=== PATIENT | male | born 1960 | race Two or more races ===

== ENCOUNTER 2017-05-29 08:33 | Day surgery (SDC) | payer OTHER ==
[2017-05-27 10:23] VITALS: BMI 26.5
[2017-05-29 09:02] LABS: MCH 27.9 pg (25.7-33.7); MCHC 34.1 g/dl (32.0-35.9); MEAN CELL VOLUME 81.8 fl (80-96); MEAN PLT VOLUME 7.4 fl (7.5-11.1); PLATELET COUNT 188 K/MM3 (134-434); RDW 13.5 % (11.9-15.9)
[2017-05-29 09:14] LABS: INR 1.03 (0.82-1.09); PROTHROMBIN TIME (PATIENT) 11.3 SEC (9.98-11.88)
[2017-05-29 09:33] LABS: ALBUMIN 3.9 g/dl (3.4-5.0); ALK PHOS 64 U/L (45-117); ANION GAP 8 (8-16); BILIRUBIN,TOTAL 0.9 mg/dL (0.2-1.0); CALCIUM 8.9 mg/dL (8.5-10.1); CO2 29 mmol/L (21-32); CREATININE 0.8 mg/dL (0.7-1.3); GLUCOSE,RANDOM 96 mg/dL (74-106); SGOT/AST 22 U/L (15-37); SGPT/ALT 32 U/L (12-78)
--- NOTE | 2017-05-29 10:26 | OP ---
Operative Note - Note: Operative Date: 05/29/17 Pre-Operative Diagnosis: Bilateral lower extremity claudication Operation: Aortogram, Bilateral lower extremity angiogram Findings: one vessel runoff bl lower ext Post-Operative Diagnosis: Same as Pre-op Surgeon: Dino Ferreira Anesthesia: Fractional Estimated Blood Loss (mls): 30 Operative Report Dictated: Yes
--- NOTE | 2017-05-29 10:27 | HP ---
Admitting History and Physical - Admission Chief Complaint: bilateral lower ext claudication - Past Medical History Cardiovascular: Yes: HTN - Smoking History Smoking history: Never smoked Have you smoked in the past 12 months: No - Alcohol/Substance Use Hx Alcohol Use: No Home Medications - Allergies Allergies/Adverse Reactions: Allergies Allergy/AdvReac Type Severity Reaction Status Date / Time No Known Allergies Allergy Verified 05/29/17 09:31 - Home Medications Home Medications: Ambulatory Orders Metoprolol Succinate [Toprol Xl -] 25 mg PO DAILY 02/24/17 Cephalexin [Keflex] 500 mg PO QID #28 capsule MDD 4 05/14/17 Atorvastatin Ca [Lipitor] 40 mg PO DAILY 05/27/17 Linaclotide [Linzess] 290 mcg PO DAILY 05/27/17 Physical Examination Vital Signs: Vital Signs Temperature 98.4 F 05/29/17 09:26 Pulse Rate 72 05/29/17 09:26 Respiratory Rate 18 05/29/17 09:26 Blood Pressure 113/76 05/29/17 09:26 O2 Sat by Pulse Oximetry (%) 100 05/29/17 09:29 Constitutional: Yes: Well Nourished Eyes: Yes: WNL HENT: Yes: WNL Neck: Yes: WNL Cardiovascular: Yes: WNL Respiratory: Yes: WNL Gastrointestinal: Yes: WNL Edema: No Integumentary: Yes: WNL Neurological: Yes: WNL Labs: CBC, BMP 05/29/17 08:50 05/29/17 08:50 Assessment/Plan Bilateral lower ext claudication 1. For angiogram today
[2017-05-29] MEDS ORDERED: RIVAROXABAN 15 MG TABLET PO SCH (10:30)
[2017-05-29] MEDS ORDERED: MIDAZOLAM HCL 2 MG/2 ML SINGLE DOSE VIAL ONE ×2 (11:03→11:33)
[2017-05-29] MEDS ORDERED: PROPOFOL 20 ML ONE (11:03)
[2017-05-29] MEDS ORDERED: SUCCINYLCHOLINE CHLORIDE 200 MG/10 ML VIAL ONE (11:03)
[2017-05-29] MEDS ORDERED: ceFAZolin SODIUM 1 GM VIAL ONE (11:36)
[2017-05-29] MEDS: BACITRACIN 15 GM TUBE TOPICAL OINTMENT ONE ×2 (13:22→13:40)
--- NOTE | 2017-05-29 13:42 | OP ---
Operative Note - Note: Operative Date: 05/29/17 Operation: Left lower extremity stab phlebectomy 7 incisions Post-Operative Diagnosis: Same as Pre-op Surgeon: Dino Ferreira Anesthesia: Spinal Estimated Blood Loss (mls): 2,000 Blood Volume Replaced (mls): 1,400 Fluid Volume Replaced (mls): 3,500 Operative Report Dictated: Yes
--- NOTE | 2017-05-29 13:47 | HP ---
Admitting History and Physical - Admission Chief Complaint: left lower extremity varicose veins. - Past Medical History Cardiovascular: Yes: HTN - Smoking History Smoking history: Never smoked Have you smoked in the past 12 months: No - Alcohol/Substance Use Hx Alcohol Use: No Home Medications - Allergies Allergies/Adverse Reactions: Allergies Allergy/AdvReac Type Severity Reaction Status Date / Time No Known Allergies Allergy Verified 05/29/17 09:31 - Home Medications Home Medications: Ambulatory Orders Metoprolol Succinate [Toprol Xl -] 25 mg PO DAILY 02/24/17 Cephalexin [Keflex] 500 mg PO QID #28 capsule MDD 4 05/14/17 Atorvastatin Ca [Lipitor] 40 mg PO DAILY 05/27/17 Linaclotide [Linzess] 290 mcg PO DAILY 05/27/17 Physical Examination Vital Signs: Vital Signs Temperature 98.4 F 05/29/17 09:26 Pulse Rate 72 05/29/17 09:26 Respiratory Rate 18 05/29/17 09:26 Blood Pressure 113/76 05/29/17 09:26 O2 Sat by Pulse Oximetry (%) 100 05/29/17 09:29 Constitutional: Yes: Well Nourished Eyes: Yes: WNL HENT: Yes: WNL Neck: Yes: WNL Cardiovascular: Yes: WNL Respiratory: Yes: WNL Gastrointestinal: Yes: WNL ...Rectal Exam: Yes: WNL Edema: Yes Integumentary: Yes: WNL Neurological: Yes: WNL ...Motor Strength: WNL Labs: CBC, BMP 05/29/17 08:50 05/29/17 08:50 Assessment/Plan Left lower ext varicose veins 1. for phlebectomy today
[2017-05-29] MEDS: ACETAMINOPHEN 1000 MG/100 ML VIAL (NON FORMULARY) IVPB ONE (14:00)
[2017-05-29] MEDS ORDERED: ACETAMINOPHEN INJECTION 100 ML IVPB ONE (14:01)
[2017-05-29] MEDS ORDERED: ONDANSETRON 4 MG/2 ML VIAL IVPUSH PRN (14:12)
[2017-05-29] MEDS ORDERED: LACTATED RINGERS SOLUTION 1,000 ML IV SCH (14:15)
[2017-05-29 14:48] LABS: INR 1.22 (0.82-1.09); PROTHROMBIN TIME (PATIENT) 13.5 SEC (9.98-11.88)
[2017-05-29 14:56] LABS: ANION GAP 7 (8-16); CALCIUM 7.5 mg/dL (8.5-10.1); CO2 29 mmol/L (21-32); CREATININE 0.7 mg/dL (0.7-1.3); GLUCOSE,RANDOM 111 mg/dL (74-106)
[2017-05-29 14:58] LABS: CPK 72 IU/L (39-308); TROPONIN I 0.02 ng/ml (0.00-0.05)
[2017-05-29] MEDS: oxyCODONE HCL 5 MG TABLET PO PRN (18:53)
[2017-05-29 20:28] LABS: BASOPHIL 0.2 % (0-2.0); EOSINOPHIL 0.7 % (0-4.5); MCHC 34.8 g/dl (32.0-35.9); MEAN CELL VOLUME 83.4 fl (80-96); NEUTROPHILS 84.7 % (42.8-82.8); PLATELET COUNT 159 K/MM3 (134-434); RDW 13.9 % (11.9-15.9); WHITE BLOOD COUNT 15.5 K/mm3 (4.0-10.0)
[2017-05-30] MEDS: oxyCODONE HCL 5 MG TABLET PO PRN (04:04)
--- NOTE | 2017-05-30 06:22 | OP ---
DATE OF OPERATION: 05/29/2017 PREOPERATIVE DIAGNOSIS: Left lower extremity varicose veins. POSTOPERATIVE DIAGNOSIS: Left lower extremity varicose veins. PROCEDURE: Left lower extremity stab phlebectomy with 7 incisions. SURGEON: Dino Baires DO ANESTHESIA: Spinal. BLOOD LOSS: 2000 mL. The patient received 4 units of packed red blood cells intraoperatively. The patient is a 57-year-old male that came into ambulatory surgery for left lower extremity phlebectomy. Patient has extensive varicosities in the left lower extremity that have been there for many, many years. He has had a phlebectomy done in the past, about 20 years ago, which required blood transfusions. Due to the extensive his varicosities with the rest of his circulation, patient currently has a giant 7 x 7 varicosity above the ankle that is thrombosed with phlebitis which needs to be removed today. Patient was consented for the procedure, citing all risks, benefits, and alternatives. Then brought to the operating room. Anesthesia then performed spinal anesthesia on the patient on the operating room table. Thereafter, the area of the left lower extremity was prepped and draped in a sterile surgical manner. We then went ahead and started at the ankle and prior to patient getting his spinal anesthesia patient stood up and using a skin marker we marked all the varicosities in the left lower extremity that needed to be removed. We then went ahead and started at the ankle at the area of vein that was the largest that was 7 x 7 thrombosed varicose vein. Under ultrasound guidance, we visualized the proximal and distal portions of the vein where it was varicosed and we then went ahead and made a 3-cm incision on either side of the thrombosed varicosity. We then went ahead and using Bovie electrocautery controlled hemostasis and we went ahead and dissected out the vein and we were able to tie off the vein and tie it off with 2-0 silk. The varicosity was then removed. During this whole time, there was some bleeding and pressure was held. We then ahead and went up the leg and using a 15 blade we made a small 2-cm incision and the varicosities were removed using right-angles and clamps. The varicosities were sent to Pathology. We continued up and in this manner 7 stab incisions were made using our 15 blade and our vein blade and we were able to remove the veins in this manner using our clamps and stripping the vein out. During this time, there was extensive bleeding and patient required 4 units of packed red blood cells. Total blood loss was 2000 mL. We then went ahead and for certain incisions there were 3 incisions that were large. We went ahead and used the 3 incisions that were about 3 or 4 cm and we went ahead and used a 3-0 Vicryl stitch and the subcutaneous tissue was approximated together. There were 4 stab incisions that would just require Steri-Strips. We then went ahead and wet and dried the area and porter were placed along the incisions that were closed with 3-0 Vicryl. We then placed bacitracin on those areas. Steri-Strips were placed to the other incisions; 4 x 4, Kerlix, and Lance bandage were then wrapped on the patient. Patient was transfused 4 units of blood during the case. Patient will now stay satellite for observation to make sure that the patient does well. Will get another CBC in 6 hours and patient will be discharged tomorrow after checking the dressing. Patient tolerated with no complications. DINO BAIRES DO [id number]
[2017-05-30 06:50] VITALS: PULSE 82
[2017-05-30] MEDS: ACETAMINOPHEN 1000 MG/100 ML VIAL (NON FORMULARY) IVPB ONE (07:46)
[2017-05-30 08:01] LABS: MCH 28.4 pg (25.7-33.7); MCHC 34.7 g/dl (32.0-35.9); MEAN CELL VOLUME 82.1 fl (80-96); MEAN PLT VOLUME 7.6 fl (7.5-11.1); PLATELET COUNT 140 K/MM3 (134-434); RDW 13.9 % (11.9-15.9); WHITE BLOOD COUNT 12.2 K/mm3 (4.0-10.0)
[2017-05-30 08:40] VITALS: BP 116/64; TEMP 98.1
--- NOTE | 2017-05-30 09:14 | PN ---
Progress Note (short form) - Note Progress Note: Vascular Surgery Pt seen and examined. Doing well Dressing changed. Will ambulate and go home. Dino Ferreira DO
[2017-05-30] MEDS ORDERED: METOPROLOL SUCCINATE 25 MG TAB.SR.24H (FP) PO SCH ×2 (10:00)
--- NOTE | 2017-05-30 15:16 | PATH ---
Surgical Pathology Report Patient Name: ANA [facility]. Rec. #: [id number] /Age/Gender: 1960 (Age: 57) / M Account: [id number] Location: [facility] SURGICAL Taken: 05/29/2017 Received: 05/29/2017 Reported: 05/30/2017 Physicians: Dino Ferreira Specimen(s) Received VARICOSE VEINS LEFT LEG Clinical History Varicose veins left leg Final Diagnosis VARICOSE VEINS, LEFT LEG PHLEBECTOMY: DILATED BLOOD VESSELS WITH MEDIAL SCLEROSIS CONSISTENT WITH VARICOSE VEINS. Electronically Signed J Carlos Lamb M.D. Gross Description Received in formalin labeled "varicose veins left leg" is a 3.5 x 3.0 x 0.5 cm aggregate of multiple laureano-pink, dilated portions of vasculature, consistent with varicose veins. Photoengraving Helper sections are submitted in one cassette. /05/29/201705/29/2017
== END 2017-05-30 12:20 | disposition home or self-care (01) ==
LOC: JASU-SURG 08:33 → J8W 16:15 → JASU-SURG 05-30 12:20
PROVIDERS: ATTEND Surgery Vascular Surgery
PROC: 30233N1 Transfusion of Nonautologous Red Blood Cells into Peripheral Vein, Percutaneous Approach (ICD-10-PCS; 2017-05-29)
PROC: 30233N1 Transfusion of Nonautologous Red Blood Cells into Peripheral Vein, Percutaneous Approach (ICD-10-PCS; 2017-05-29)
PROC: 06BY0ZZ Excision of Lower Vein, Open Approach (ICD-10-PCS; principal; 2017-05-29 10:30)
DX: I83.892 Varicose veins of left lower extremity with other complications (principal); I82.5Z2 Chronic embolism and thrombosis of unspecified deep veins of left distal lower extremity; I97.418 Intraoperative hemorrhage and hematoma of a circulatory system organ or structure complicating other circulatory system procedure
CPT/HCPCS: 36415; 36430; 80048; 80053; 84484; 85025; 85027; 85610; 86850; 86900; 86901; 86922; 88304-TC; 94760; P9038; P9058